=== PATIENT | female | born 1995 | race Caucasian/White ===

== ENCOUNTER 2019-08-25 07:17 | Emergency (ER) | payer MEDICAID ==
[~2019-08-25] VITALS: Ht 165.1 cm; Wt 72.7 kg
[2019-08-25 07:39] VITALS: BP 114/69; Ht 165.1 cm; Wt 72.7 kg
[2019-08-25 08:44] LABS: HCG URINE NEGATIVE (NEGATIVE)
[2019-08-25 08:50] LABS: APPEARANCE HAZY (CLEAR); BILIRUBIN NEGATIVE (NEGATIVE); COLOR YELLOW (YELLOW); GLUCOSE NEGATIVE (NEGATIVE); KETONE NEGATIVE (NEGATIVE); NITRITE NEGATIVE (NEGATIVE); PROTEIN NEGATIVE (NEGATIVE); RED CELLS - URINE 0-5 /hpf (0-5); SPECIFIC GRAVITY 1.015 (1.005-1.020); UROBILINOGEN NORMAL (NORMAL); WHITE CELLS - URINE 0-5 /hpf (NEGATIVE)
[2019-08-25 08:51] LABS: BACTERIA MODERATE /hpf (NEGATIVE); MUCUS <1+ /lpf (NONE SEEN)
[2019-08-25] MEDS ORDERED: SMZ-TMP DS 800-1 TAB PO (08:55)
== END 2019-08-25 09:09 | disposition home or self-care (01) ==
LOC: D.ER 07:17
PROVIDERS: Family Medicine
DX: R30.0 Dysuria (principal)